=== PATIENT | male | born 1995 ===

== ENCOUNTER 2024-10-18 00:24 | Emergency (ER) | payer SELFPAY ==
[~2024-10-18] VITALS: Ht 165.1 cm; Wt 65.9 kg
[2024-10-18 00:59] VITALS: TEMP 97.8
[2024-10-18] MEDS: SODIUM CHLORIDE 0.9% 1,000 ML IV ONE (01:42)
[2024-10-18 02:04] LABS: COVID AG,FIA SOURCE NASAL SWAB
[2024-10-18 02:09] LABS: BASOPHILS % (AUTO) 0.1 % (0.0-2.0); HEMATOCRIT 42.8 % (41-53); HEMOGLOBIN 14.4 g/dL (13.5-17.5); LYMPHOCYTES # (AUTO) 0.6 K/uL (1.0-4.8); MEAN CORPUSCULAR HEMOGLOBIN 30.6 pg (26.0-34.0); MEAN CORPUSCULAR HGB CONC 33.7 G/dL (31.0-37.0); MEAN CORPUSCULAR VOLUME 91 fL (80-100); MONOCYTES # (AUTO) 0.6 K/uL (0.1-1.0); MONOCYTES % (AUTO) 5.4 % (2.0-9.0); NEUTROPHILS # (AUTO) 10.3 K/uL (1.8-7.7); PLATELET COUNT (AUTO) 203 K/uL (150-450); RED CELL DISTRIBUTION WIDTH 13.5 % (11.5-14.5); WHITE BLOOD COUNT (AUTO) 11.6 K/uL (4.5-11.0)
[2024-10-18 02:16] LABS: NEUTROPHILS % (AUTO) 88.5 % (40.0-70.0)
[2024-10-18 02:17] LABS: ANION GAP 10 mmol/L (8-16); CALCIUM, TOTAL 8.7 mg/dL (8.8-10.5); CARBON DIOXIDE 25 mmol/L (22-29); CHLORIDE 103 mmol/L (98-107); CREATININE 0.78 mg/dL (0.60-1.30); GLOMERULAR FILTR. RATE CALC > 60 mL/min (>60); GLUCOSE,RANDOM 110 mg/dL (70-110); LIPASE 26 U/L (16-77); POTASSIUM 3.2 mmol/L (3.5-5.1); SODIUM SERUM 138 mmol/L (136-145); UREA NITROGEN, BLOOD 13 mg/dL (7-18)
[2024-10-18] MEDS: POTASSIUM CHLORIDE 20 MEQ ER TABLET PO ONE (02:36)
[2024-10-18 02:40] LABS: ALCOHOL, BLOOD (SERUM) < 3 mg/dL (0-10)
[2024-10-18 02:42] LABS: INFLUENZA TYPE A NEGATIVE FOR TYPE A (NEGATIVE); INFLUENZA TYPE B NEGATIVE FOR TYPE B (NEGATIVE)
[2024-10-18 02:46] LABS: SARS-COV2 (COVID) ANTIGEN,FIA Negative (Negative)
[2024-10-18 04:15] VITALS: BP 122/71; PULSE 79; RESP 15; O2SAT 98
== END 2024-10-18 04:34 | disposition home or self-care (01) ==
LOC: EMS 00:24
DX: R19.7 Diarrhea, unspecified (principal); E87.6 Hypokalemia; R44.0 Auditory hallucinations; Z20.822 Contact with and (suspected) exposure to COVID-19
CPT/HCPCS: 99283; 96360; 87426; 80048; 83690; 83735; 85025; 87804; 36415; G0480; J7030